=== PATIENT | female | born 1930 | race Caucasian/White ===

== ENCOUNTER 2016-12-30 12:26 | Emergency (ER) | payer OTHER, MEDICARE ==
--- NOTE | 2016-12-30 12:28 | PDOC ---
History of Present Illness - General History Source: EMS, Old Records Exam Limitations: Clinical Condition <TrinidadwileyMehnaz - Last Filed: 12/30/16 13:11> - General History Source: EMS Exam Limitations: No Limitations - History of Present Illness Initial Comments: 12/30/16 12:30 The patient is an 86-year-old woman with a significant past medical history of a hypertension, hypercholesterolemia, cerebrovascular accident, as per , without any residual defects, non-insulin diabetes mellitus and gastroesophageal reflux disease who presents to the emergency department via EMS for further evaluation of a possible stroke. As per EMS, patient was noted to have right sided weakness while swimming laps, approximately 25 minutes ago, prior to emergency department arrival. She was noted to have right facial droop and slurred speech, as well. On scene, patient's blood glucose was 126, as per EMS. Patient was rushed to CT at 12:24 Code gleason was activated at 12:25 Allergies: No Known Drug Allergies Past Surgical History: None reported Social History: No tobacco, ETOH and recreational drug use. Primary Care Physician: Dr. David Posada [phone] <Leda Forman - Last Filed: 12/30/16 13:18> - General Stated Complaint: STROKE Time Seen by Provider: 12/30/16 12:28 Past History <Mehnaz Valle - Last Filed: 12/30/16 13:11> <Leda Forman - Last Filed: 12/30/16 13:18> - Past Medical History Allergies/Adverse Reactions: Allergies Allergy/AdvReac Type Severity Reaction Status Date / Time No Known Allergies Allergy Verified 07/25/16 13:45 Home Medications: Ambulatory Orders Metformin HCl [Glucophage Xr] 500 mg PO DAILY 10/13/11 Lovastatin [Mevacor] 10 mg PO HS 03/11/12 Aspirin Coated [Ecotrin -] 81 mg PO Q2D #0 01/20/16 Omeprazole [Prilosec] 40 mg PO DAILY 01/20/16 Review of Systems - Review of Systems Able to Perform ROS?: No <Leda Forman - Last Filed: 12/30/16 13:18> *Physical Exam - Physical Exam Comments: 12/30/16 12:34 GENERAL: Awake. Alert. Following commands. HEENT: Normocephalic, atraumatic. PERRLA, EOMI. No conjunctival pallor. Sclera are non-icteric. Moist mucous membranes. Oropharynx is clear. NECK: Supple. Full ROM. No JVD. CARDIOVASCULAR: Regular rate and rhythm. No murmurs, rubs, or gallops. PULMONARY: No evidence of respiratory distress. Lungs clear to auscultation bilaterally. No wheezing, rales or rhonchi. ABDOMINAL: Soft. Non-tender. Non-distended. No rebound or guarding. No organomegaly. Normoactive bowel sounds. EXTREMITIES: No cyanosis. No clubbing. No edema. No calf tenderness. SKIN: Warm and dry. Normal capillary refill. No rashes. No jaundice. NEUROLOGICAL: See NIHSS. PSYCHIATRIC: Deferred <Leda Forman - Last Filed: 12/30/16 13:18> NIH Stroke Scale - Last Known Well Date/Time & Onset Date Last Known Well: 12/30/16 Time Last Known Well: 12:05 - Initial Evaluation Level of consciousness: Alert Ask patient the month and their age: Both incorrect Ask patient to open & close eyes; make fist and let go: Obeys both correctly Best gaze (horizontal eye movement): Partial gaze palsy Visual field testing: No visual field loss Facial paresis (Show teeth/raise eyebrows/close eyes tight): Partial paralysis ( total or near paralysis of lower face) Motor Function: Left Arm: Normal Motor Function: Right Arm: No movement Motor Function: Left Leg: Normal (extends leg 30 degrees for 5 seconds without drift) Motor Function: Right Leg: No movement Limb Ataxia: No ataxia Sensory(Use pinprick test arms,legs,trunk,face/side to side): Normal Best language (Describe picture, name items, read sentences): Severe aphasia Dysarthria (read several words): Near unintelligible or unable to speak Extinction and Inattention: No abnormality - Total Score NIH Stroke Scale Score: 17 <Mehnaz Valle - Last Filed: 12/30/16 13:11> Critical Care Time/[facility] Note - Medical Decision Making Note: 12/30/16 12:55 86-year-old female with history of diabetes and hyperlipidemia and CVA in the past presents to the emergency department by EMS with acute onset of right sided weakness and slurred speech 20 minutes prior to presentation; last normal seen time is 12: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 Plan: 1. The case was discussed with the neurologist on-call; the plan is to transfer the patient to a higher level of care for neurology and neurosurgery consult 2. Labs 3. EKG 4. Chest x-ray 5. Observe and reevaluate 12/30/16 13:11 Addendum: The transfer was accepted at [facility] by Dr. De, Neurosurgery. Keppra 1g IV was ordered for anti-seizure prophylaxis. <Mehnaz Valle - Last Filed: 12/30/16 13:11> - Medical Decision Making Note: 12/30/16 12:24 Patient was rushed to CT at 12:24 12/30/16 12:25 Code gleason was activated at 12:25 12/30/16 12:34 Received a call from Radiology. Case was discussed. 12/30/16 12:35 Overhead paged Neurologist, Dr. Cohn 12/30/16 12:[address] Cohn. Case was discussed. 12/30/16 12:53 Called [facility] at [phone] TO [facility]. 12/30/16 13:00 Call back from Neurosurgeon from [facility]- Dr. De. Case was discussed. ETA of 25 -30 minutes. <Leda Forman - Last Filed: 12/30/16 13:18> Discharge Disposition - Transfer to Acute Care Facility Transfer comment: 12/30/16 12:57 I, Dr. Mehnaz Valle, attest that the scribes documentation that appears above has been prepared under my direction and personally reviewed by me in its entirety. I confirmed that the note above accurately reflects all work, treatment, procedures, and medical decision-making performed by me. <Mehnaz Valle - Last Filed: 12/30/16 13:11> <Leda Forman - Last Filed: 12/30/16 13:18> - Diagnosis Cerebrovascular accident (CVA) - Discharge Dispostion Disposition: TRANSFER ACUTE CARE/OTHER HOSP Condition at time of disposition: Good
[2016-12-30] MEDS ORDERED: SODIUM CHLORIDE 1,000 ML IV SCH ×2 (12:30→13:00)
[2016-12-30 13:05] LABS: BASOPHIL 1.2 % (0-2.0); EOSINOPHIL 1.7 % (0-4.5); MCH 30.5 pg (25.7-33.7); MEAN CELL VOLUME 92.3 fl (80-96); MEAN PLT VOLUME 8.2 fl (7.5-11.1); NEUTROPHILS 70.1 % (42.8-82.8); PLATELET COUNT 203 K/MM3 (134-434); RDW 13.3 % (11.6-15.6); WHITE BLOOD COUNT 5.7 K/mm3 (4.0-10.0)
[2016-12-30] MEDS ORDERED: levETIRAcetam 500 MG/5 ML INJECTION VIAL IVPB ONE ×2 (13:11→13:19)
[2016-12-30 13:12] VITALS: BMI 32.3
[2016-12-30 13:18] LABS: INR 0.97 (0.82-1.09); PROTHROMBIN TIME (PATIENT) 10.7 SEC (9.98-11.88)
[2016-12-30 13:20] LABS: ACTIVATED PTT 30.9 SECONDS (26.9-34.4)
[2016-12-30 14:03] LABS: ALBUMIN 3.4 g/dl (3.4-5.0); ANION GAP 10 (8-16); BILIRUBIN,TOTAL 0.4 mg/dL (0.2-1.0); CALCIUM 8.4 mg/dL (8.5-10.1); CO2 29 mmol/L (21-32); COCKROFT - GAULT 111.3755; CREATININE 0.5 mg/dL (0.55-1.02); GLUCOSE,RANDOM 115 mg/dL (74-106); SGOT/AST 13 U/L (15-37); SGPT/ALT 19 U/L (12-78); TOT PROT 6.8 g/dl (6.4-8.2)
[2016-12-30 14:05] LABS: ALK PHOS 125 U/L (45-117); TROPONIN I < 0.02 ng/ml (0.00-0.05)
--- NOTE | 2016-12-30 14:16 | EKG ---
Test Reason : Blood Pressure : / mmHG Vent. Rate : 063 BPM Atrial Rate : 063 BPM P-R Int : 174 ms QRS Dur : 074 ms QT Int : 440 ms P-R-T Axes : 063 -37 044 degrees QTc Int : 450 ms NORMAL SINUS RHYTHM WITH SINUS ARRHYTHMIA LEFT AXIS DEVIATION ABNORMAL ECG NO PREVIOUS ECGS AVAILABLE Confirmed by TAN FAJARDO MD ([id number]) on 12/30/2016 2:15:33 PM Referred By: Confirmed By:TAN FAJARDO MD
[2016-12-30 14:22] VITALS: BP 140/74; PULSE 61; TEMP 97.4
== END 2016-12-30 14:22 | disposition short-term general hospital (02) ==
LOC: EDUNIT# → JER 12:26
PROC: 3E033GC Introduction of Other Therapeutic Substance into Peripheral Vein, Percutaneous Approach (ICD-10-PCS; principal; 2016-12-30)
PROC: 3E0337Z Introduction of Electrolytic and Water Balance Substance into Peripheral Vein, Percutaneous Approach (ICD-10-PCS; 2016-12-30)
DX: I61.9 Nontraumatic intracerebral hemorrhage, unspecified (principal); I10 Essential (primary) hypertension; E78.00 Pure hypercholesterolemia, unspecified; Z86.73 Personal history of transient ischemic attack (TIA), and cerebral infarction without residual deficits; E11.9 Type 2 diabetes mellitus without complications; K21.9 Gastro-esophageal reflux disease without esophagitis
CPT/HCPCS: 36415; 70450-TC; 71010-TC; 80053; 82550; 84484; 85025; 85610; 85730; 86850; 86900; 86901; 93005; 93010; 99285-25